=== PATIENT | female | born 1980 | race Two or more races ===

== ENCOUNTER 2020-04-08 08:12 | Day surgery (SDC) | payer OTHER ==
[~2020-04-08 08:12] MED LIST: HYDROCHLOROTHIAZIDE PO; SYNTHROID150 MCG PO
== END 2020-04-08 18:50 | disposition home or self-care (01) ==
LOC: CIR.AMB 08:12
PROVIDERS: ATTEND Colon & Rectal Surgery
DX: K60.3 Anal fistula (principal); Z20.828 Contact with and (suspected) exposure to other viral communicable diseases

== ENCOUNTER → 2021-01-05 | Outpatient (CLI) | payer OTHER | END | disposition home or self-care (01) | LOC: PRENATAL 08:00 | PROVIDERS: ATTEND Obstetrics & Gynecology Maternal & Fetal Medicine | DX: O35.0XX1 Maternal care for (suspected) central nervous system malformation in fetus, fetus 1 (principal); O35.3XX1 Maternal care for (suspected) damage to fetus from viral disease in mother, fetus 1; O98.512 Other viral diseases complicating pregnancy, second trimester; O09.512 Supervision of elderly primigravida, second trimester; O99.212 Obesity complicating pregnancy, second trimester; Z36.89 Encounter for other specified antenatal screening; Z3A.24 24 weeks gestation of pregnancy ==

== ENCOUNTER 2021-03-09 13:05 | Outpatient (CLI) | payer OTHER | END 2021-03-09 13:55 | disposition home or self-care (01) | LOC: PRENATAL 13:05 | PROVIDERS: ATTEND Obstetrics & Gynecology Maternal & Fetal Medicine | DX: O26.843 Uterine size-date discrepancy, third trimester (principal); O99.213 Obesity complicating pregnancy, third trimester; O99.891 Other specified diseases and conditions complicating pregnancy; O09.513 Supervision of elderly primigravida, third trimester; Z36.89 Encounter for other specified antenatal screening; Z3A.34 34 weeks gestation of pregnancy ==

== ENCOUNTER 2021-06-17 10:57 | Outpatient (CLI) | payer OTHER | END 2021-06-17 12:37 | disposition home or self-care (01) | LOC: SONOGRAMA 10:57 | PROVIDERS: ATTEND Pathology Anatomic Pathology & Clinical Pathology | DX: E04.2 Nontoxic multinodular goiter (principal) ==